=== PATIENT | female | born 1990 | race Caucasian/White ===

== ENCOUNTER 2017-10-06 18:11 | Emergency (ER) | payer MEDICAID ==
[~2017-10-06 18:11] MED LIST: CHLO.12%30 SWISH-SPIT; CLIN150 PO; IBUP800T23 PO; MMW SWISH-SPIT; NAPR220T95 PO; PAXI20TA26 PO
[2017-10-06 18:31] VITALS: BP 110/63; PULSE 88; RESP 20; TEMP 98.3; O2SAT 98
[2017-10-06] MEDS ORDERED: [UNRECOGNIZED DRUG - REMARK] (18:46)
[2017-10-06] MEDS ORDERED: SODIUM CHLOR 0.9% 1000 ML INJ 1,000 ML IV SCH (19:18)
[2017-10-06] MEDS ORDERED: ZOFR4TAB3 SL (19:30)
[2017-10-06] MEDS ORDERED: LOMO2.5T PO (19:30)
[2017-10-06] MEDS ORDERED: KETOROLAC TROMETHAMINE 30 MG/ML (IVP) VIAL IVP ONE (19:30)
[2017-10-06] MEDS ORDERED: SODIUM CHLORIDE 0.9% FLUSH 10 ML FLUSH IV FLUSH PRN (19:30)
[2017-10-06] MEDS ORDERED: ONDANSETRON HCL 4 MG/2 ML VIAL IVP ONE (19:30)
--- NOTE | 2017-10-06 19:31 | PD ---
HPI Chief Complaint: Fever Time Seen by Provider: 18:49 Travel History International Travel<30 days: No Contact w/Intl Traveler<30days: No Traveled to known affect area: No History of Present Illness HPI 27-year-old female complains of headache, fever, nausea vomiting diarrhea. Patient states the symptoms started yesterday. Patient states that the headache is aching headache diffuse over the head. Patient denies any visual change. Patient denies any neck pain. Patient denies earache or sore throat. Patient denies chest pain or shortness of breath. Patient states that she has intermittent abdominal cramping with diarrhea. Patient denies any blood or mucus in the stool. Patient denies any dysuria or frequency. Patient denies any vaginal discharge or bleeding. Patient states that she has history of recurrent headache in the past and on medication for that. Patient does not know the name of the medication for the headache. PFSH Past Medical History Medical History: Denies Significant Hx Diminished Hearing: No Immunizations Current: Yes ?: Not LMP: 10 27 17 : 4 Para: 2 : 1 Past Surgical History Abdominal Surgery: Yes () Section: Yes (2008) Social History Alcohol Use: No Tobacco Use: No Substance Use: No Allergies-Medications (Allergen,Severity, Reaction): Coded Allergies: No Known Allergies (Verified , 01/28/16) Reported Meds & Prescriptions Reported Meds & Active Scripts Active Lomotil (Diphenoxylate-Atropine) 2.5-0.025 Mg Tab 1 Tab PO Q6H PRN Zofran Odt (Ondansetron Odt) 4 Mg Tab 4 Mg SL Q6HR PRN Reported [Rx Headache Med] Review of Systems General / Constitutional: Positive: Fever Eyes: No: Visual changes HENT: Positive: Headaches Cardiovascular: No: Chest Pain or Discomfort Respiratory: No: Shortness of Breath Gastrointestinal: Positive: Nausea, Vomiting, Diarrhea, Abdominal Pain Genitourinary: No: Dysuria Musculoskeletal: No: Pain Skin: No Rash Neurologic: No: Weakness Psychiatric: No: Depression Endocrine: No: Polydipsia Hematologic/Lymphatic: No: Easy Bruising Physical Exam Narrative GENERAL: Well-nourished, well-developed patient. SKIN: Focused skin assessment warm/dry. HEAD: Normocephalic. EYES: No scleral icterus. No injection or drainage. Mucous membrane oral mucosa is mildly dry. NECK: Supple, trachea midline. No JVD or lymphadenopathy. No meningismus CARDIOVASCULAR: Regular rate and rhythm without murmurs, gallops, or rubs. RESPIRATORY: Breath sounds equal bilaterally. No accessory muscle use. GASTROINTESTINAL: Abdomen soft, non-tender, nondistended. MUSCULOSKELETAL: No cyanosis, or edema. BACK: Nontender without obvious deformity. No CVA tenderness. Neurologic exam normal. Data Data Last Documented VS Vital Signs Date Time Temp Pulse Resp B/P (MAP) Pulse Ox O2 Delivery O2 Flow Rate FiO2 10/06/17 18:31 98.3 88 20 110/63 (79) 98 Orders Orders Complete Blood Count With Diff (10/06/17 19:18) Comprehensive Metabolic Panel (10/06/17 19:18) Lipase (10/06/17 19:18) Urinalysis - C+S If Indicated (10/06/17 19:18) Iv Access Insert/Monitor (10/06/17 19:18) Ondansetron Inj (Zofran Inj) (10/06/17 19:30) Sodium Chlor 0.9% 1000 Ml Inj (Ns 1000 M (10/06/17 19:18) Sodium Chloride 0.9% Flush (Ns Flush) (10/06/17 19:30) Ketorolac Inj (Toradol Inj) (10/06/17 19:30) Ed Urine Pregnancytest Poc (10/06/17 19:18) Labs Laboratory Tests Test 10/06/17 19:05 10/06/17 19:25 Urine Color YELLOW Urine Turbidity CLEAR Urine pH 7.0 Urine Specific [place] 1.023 Urine Protein NEG mg/dL Urine Glucose (UA) NEG mg/dL Urine Ketones NEG mg/dL Urine Occult Blood NEG Urine Nitrite NEG Urine Bilirubin NEG Urine Leukocyte Esterase TRACE Urine RBC 0-2 /hpf Urine WBC 6-8 /hpf Urine Squamous Epithelial Cells 6-8 /hpf Urine Bacteria FEW /hpf Microscopic Urinalysis Comment CULT NOT INDICATED White Blood Count 10.2 TH/MM3 Red Blood Count 4.34 MIL/MM3 Hemoglobin 12.7 GM/DL Hematocrit 37.2 % Mean Corpuscular Volume 85.7 FL Mean Corpuscular Hemoglobin 29.3 PG Mean Corpuscular Hemoglobin Concent 34.1 % Red Cell Distribution Width 14.0 % Platelet Count 213 TH/MM3 Mean Platelet Volume 8.1 FL Neutrophils (%) (Auto) 52.2 % Lymphocytes (%) (Auto) 34.9 % Monocytes (%) (Auto) 8.5 % Eosinophils (%) (Auto) 3.5 % Basophils (%) (Auto) 0.9 % Neutrophils # (Auto) 5.3 TH/MM3 Lymphocytes # (Auto) 3.5 TH/MM3 Monocytes # (Auto) 0.9 TH/MM3 Eosinophils # (Auto) 0.4 TH/MM3 Basophils # (Auto) 0.1 TH/MM3 CBC Comment DIFF FINAL Differential Comment Blood Urea Nitrogen 22 MG/DL Creatinine 1.10 MG/DL Random Glucose 87 MG/DL Total Protein 6.7 GM/DL Albumin 3.6 GM/DL Calcium Level 8.1 MG/DL Alkaline Phosphatase 64 U/L Aspartate Amino Transf (AST/SGOT) 13 U/L Alanine Aminotransferase (ALT/SGPT) 19 U/L Total Bilirubin 0.5 MG/DL Sodium Level 137 MEQ/L Potassium Level 3.8 MEQ/L Chloride Level 105 MEQ/L Carbon Dioxide Level 26.9 MEQ/L Anion Gap 5 MEQ/L Estimat Glomerular Filtration Rate 59 ML/MIN Lipase 182 U/L [facility] Medical Decision Making Medical Screen Exam Complete: Yes Emergency Medical Condition: Yes Interpretation(s) 2020 p.m. CBC within normal limit. BUN 22. Creatinine 1.10. UA positive with WBC and bacteria. Differential Diagnosis Differential diagnosis including viral syndrome, gastroenteritis, cephalgia, dehydration, electrolyte imbalance. Narrative Course 27-year-old female with fever, abdominal cramping, nausea vomiting diarrhea. Normal saline solution 1 L IV bolus. Zofran 4 mg IV. Toradol 30 mg IV. Diagnosis Primary Impression: Gastroenteritis Additional Impressions: Viral syndrome Cephalgia Qualified Codes: R51 - Headache UTI (urinary tract infection) Qualified Codes: N30.00 - Acute cystitis without hematuria Patient Instructions: General Instructions Additional Instructions: Clear fluids tonight and advance diet as tolerated. Tylenol for fever. Take medications as needed. Follow-up with personal physician. Return if persistent problem or worse. Med/Other Pt SpecificInfo: Prescription(s) given Scripts Sulfamethoxazole-Trimethoprim (Bactrim DS) 800-160 Mg Tab 1 TAB PO BID for Infection, #6 TAB 0 Refills Prov: Jonas Bray MD 10/06/17 Diphenoxylate-Atropine (Lomotil) 2.5-0.025 Mg Tab 1 TAB PO Q6H Y for DIARRHEA, #10 TAB 0 Refills Prov: Jonas Bray MD 10/06/17 Ondansetron Odt (Zofran Odt) 4 Mg Tab 4 MG SL Q6HR Y for Nausea/Vomiting, #10 TAB 0 Refills Prov: Jonas Bray MD 10/06/17 Disposition: 01 DISCHARGE HOME Condition: Stable Jonas Bray MD Oct 06, 2017 19:31
[2017-10-06 19:38] LABS: AUTOMATED NEUTROPHIL # 5.3 TH/MM3 (1.8-7.7); BASOPHIL # 0.1 TH/MM3 (0-0.2); BASOPHIL % 0.9 % (0.0-2.0); EOSINOPHIL # 0.4 TH/MM3 (0-0.4); EOSINOPHIL % 3.5 % (0.0-4.0); HEMATOCRIT 37.2 % (35.0-46.0); HEMO FLAGS DIFF FINAL; LYMPH % 34.9 % (9.0-44.0); LYMPHOCYTE # 3.5 TH/MM3 (1.0-4.8); MEAN CELL VOLUME 85.7 FL (80.0-100.0); MEAN CORPUSCULAR HEMOGLOBIN 29.3 PG (27.0-34.0); MEAN CORPUSCULAR HGB CONC 34.1 % (32.0-36.0); MONO % 8.5 % (0.0-8.0); NEUT % 52.2 % (16.0-70.0); PLATELET COUNT 213 TH/MM3 (150-450); RED BLOOD COUNT 4.34 MIL/MM3 (4.00-5.30); WHITE BLOOD COUNT 10.2 TH/MM3 (4.0-11.0)
[2017-10-06 19:40] LABS: BLOOD, URINE NEG (NEG); GLUCOSE,URINE NEG (NEG); KETONE, URINE NEG (NEG); NITRITE,URINE NEG (NEG)
[2017-10-06 19:45] LABS: RBC, URINE 0-2 /hpf (0-3); URINE COLOR YELLOW (YELLW/STRAW)
[2017-10-06 19:46] LABS: BACTERIA, URINE FEW /hpf; COMMENT (UR) CULT NOT INDICATED; CULTURE IF INDICATED CULT NOT INDICATED
[2017-10-06 19:48] LABS: CHLORIDE 105 MEQ/L (98-107); POTASSIUM 3.8 MEQ/L (3.5-5.1); SODIUM (NA) 137 MEQ/L (136-145)
[2017-10-06 19:52] LABS: ANION GAP 5 MEQ/L (5-15); BICARBONATE 26.9 MEQ/L (21.0-32.0); BLOOD UREA NITROGEN 22 MG/DL (7-18)
[2017-10-06 19:55] LABS: ALT (GPT) 19 U/L (10-53); AST (GOT) 13 U/L (15-37); GLOMERULAR FILTRATION RATE 59 ML/MIN (>89)
[2017-10-06 19:56] LABS: TOTAL BILIRUBIN ADULT 0.5 MG/DL (0.2-1.0)
[2017-10-06 19:58] LABS: ALKALINE PHOSPHATASE 64 U/L (45-117)
[2017-10-06] MEDS ORDERED: BACT800T5 PO (20:23)
[2017-10-06 20:51] VITALS: BP 105/57
== END 2017-10-06 20:52 | disposition home or self-care (01) ==
LOC: PHED 18:11
DX: K52.9 Noninfective gastroenteritis and colitis, unspecified (principal); B34.9 Viral infection, unspecified; R51 Headache; N30.00 Acute cystitis without hematuria
CPT/HCPCS: 80053; 81001; 83690; 84703; 85025; 96361; 96374; 96375; 99284; J1885; J2405; J7030

== ENCOUNTER 2017-10-12 07:59 | Emergency (ER) | payer OTHER, MEDICAID ==
[~2017-10-12] VITALS: Ht 149.9 cm; Wt 52.0 kg
[~2017-10-12 07:59] MED LIST changes: +BACT800T5 PO; -CHLO.12%30 SWISH-SPIT; -CLIN150 PO; -IBUP800T23 PO; +LOMO2.5T PO; -MMW SWISH-SPIT; -NAPR220T95 PO; -PAXI20TA26 PO; +ZOFR4TAB3 SL; +[UNRECOGNIZED DRUG - REMARK]
[2017-10-12 08:01] VITALS: BP 138/87; PULSE 92; RESP 18; TEMP 98.3; O2SAT 99
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
[2017-10-12] MEDS ORDERED: ORPHENADRINE INJ 60 MG/2 ML AMP IM ONE (09:00)
[2017-10-12] MEDS ORDERED: KETOROLAC TROMETHAMINE 60 MG/2 ML (IM) VIAL IM ONE (09:00)
[2017-10-12] MEDS ORDERED: ROBA500T PO (09:17)
[2017-10-12] MEDS ORDERED: IBUP1TAB7 PO (09:17)
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
== END 2017-10-12 10:29 | disposition home or self-care (01) ==
LOC: NEPD 07:59
DX: S13.4XXA Sprain of ligaments of cervical spine, initial encounter (principal); S00.33XA Contusion of nose, initial encounter; M54.5 Low back pain; R51 Headache; V43.52XA Car driver injured in collision with other type car in traffic accident, initial encounter
CPT/HCPCS: 70450; 70486; 72020; 72100; 72125; 96372; 99285; J1885; J2360

== ENCOUNTER 2018-01-11 11:31 | Emergency (ER) | payer MEDICAID, OTHER ==
[~2018-01-11] VITALS: Ht 149.9 cm; Wt 52.9 kg
[~2018-01-11 11:31] MED LIST changes: -BACT800T5 PO; +IBUP1TAB7 PO; -LOMO2.5T PO; +ROBA500T PO; -[UNRECOGNIZED DRUG - REMARK]
[2018-01-11 11:36] VITALS: BP 108/71; PULSE 68; RESP 16; TEMP 98.9; O2SAT 99
[2018-01-11 12:00] VITALS: BP 106/69; PULSE 80; RESP 16; TEMP 98.7; O2SAT 99
[2018-01-11] MEDS ORDERED: SODIUM CHLOR 0.9% 1000 ML INJ 1,000 ML IV ONE (12:09)
[2018-01-11] MEDS ORDERED: diphenhydrAMINE HCL 50 MG/ML VIAL IVP ONE (12:15)
[2018-01-11] MEDS ORDERED: METOCLOPRAMIDE HCL 10 MG/2 ML VIAL IVP ONE (12:15)
[2018-01-11] MEDS ORDERED: SODIUM CHLORIDE 0.9% FLUSH 10 ML FLUSH IV FLUSH PRN (12:15)
[2018-01-11 12:17] VITALS: RESP 16; O2SAT 99
[2018-01-11 12:28] LABS: BILIRUBIN, URINE NEG (NEG); BLOOD, URINE NEG (NEG); GLUCOSE,URINE NEG (NEG); KETONE, URINE NEG (NEG); NITRITE,URINE NEG (NEG); URINE LEUKOCYTE ESTERASE NEG (NEG)
[2018-01-11 12:35] LABS: URINE COLOR YELLOW (YELLW/STRAW)
[2018-01-11] MEDS ORDERED: TRAM50TA PO (12:35)
[2018-01-11 12:36] LABS: AMORPHOUS SEDIMENT, URINE FEW
--- NOTE | 2018-01-11 13:07 | PD ---
HPI Chief Complaint: GI Complaint Time Seen by Provider: 12:04 Travel History International Travel<30 days: No Contact w/Intl Traveler<30days: No Traveled to known affect area: No History of Present Illness HPI 27-year-old female complains of nausea vomiting this morning while working at [employer] making [employer]. No fever. No vaginal bleeding or discharge. No urinary complaint. Patient was sent here by her employer for evaluation. Duration of symptoms has been several hours. She reports sick contacts. Last menstruation ended yesterday. PFSH Past Medical History Diminished Hearing: No Musculoskeletal: Yes (chronic back pain) Immunizations Current: Yes Tetanus Vaccination: < 5 Years Influenza Vaccination: No ?: Not LMP: 12/30/17 : 4 Para: 2 : 1 Past Surgical History Abdominal Surgery: Yes () Section: Yes (2008) Social History Alcohol Use: No Tobacco Use: No (2-3 CIGARETTES PER DAY) Substance Use: No Allergies-Medications (Allergen,Severity, Reaction): Coded Allergies: No Known Allergies (Verified Adverse Reaction, Unknown, 01/11/18) Reported Meds & Prescriptions Reported Meds & Active Scripts Active Reported Tramadol (Tramadol HCl) 50 Mg Tab 50 Mg PO BID PRN Review of Systems Except as stated in HPI: all other systems reviewed are Neg General / Constitutional: No: Fever Cardiovascular: No: Chest Pain or Discomfort Physical Exam Narrative GENERAL: Well-nourished well-developed 27-year-old female resting comfortably in bed Vital Signs Date Time Temp Pulse Resp B/P (MAP) Pulse Ox O2 Delivery O2 Flow Rate FiO2 01/11/18 12:17 16 99 Room Air 01/11/18 12:12 16 01/11/18 12:00 98.7 80 16 106/69 (81) 99 SKIN: Warm and dry. HEAD: Atraumatic. Normocephalic. EYES: Pupils equal and round. No scleral icterus. No injection or drainage. ENT: No nasal bleeding or discharge. Mucous membranes pink and moist. NECK: Trachea midline. No JVD. CARDIOVASCULAR: Regular rate and rhythm. RESPIRATORY: No accessory muscle use. Clear to auscultation. Breath sounds equal bilaterally. GASTROINTESTINAL: Abdomen soft, non-tender, nondistended. Hepatic and splenic margins not palpable. MUSCULOSKELETAL: Extremities without clubbing, cyanosis, or edema. No obvious deformities. NEUROLOGICAL: Awake and alert. No obvious cranial nerve deficits. Motor grossly within normal limits. Five out of 5 muscle strength in the arms and legs. Normal speech. PSYCHIATRIC: Appropriate mood and affect; insight and judgment normal. Data Data Last Documented VS Vital Signs Date Time Temp Pulse Resp B/P (MAP) Pulse Ox O2 Delivery O2 Flow Rate FiO2 01/11/18 12:17 16 99 Room Air 01/11/18 12:00 98.7 80 106/69 (81) Orders Orders Urinalysis - C+S If Indicated (01/11/18 12:09) Iv Access Insert/Monitor (01/11/18 12:09) Ecg Monitoring (01/11/18 12:09) Oximetry (01/11/18 12:09) Sodium Chloride 0.9% Flush (Ns Flush) (01/11/18 12:15) Ed Urine Pregnancytest Poc (01/11/18 12:09) Diphenhydramine Inj (Benadryl Inj) (01/11/18 12:15) Metoclopramide Inj (Reglan Inj) (01/11/18 12:15) Sodium Chlor 0.9% 1000 Ml Inj (Ns 1000 M (01/11/18 12:09) Influenzae A/B Antigen (01/11/18 12:09) Ed Discharge Order (01/11/18 13:11) Labs Laboratory Tests Test 01/11/18 12:20 Urine Collection Type CLEAN CATCH Urine Color YELLOW Urine Turbidity CLEAR Urine pH 6.0 Urine Specific [place] 1.007 Urine Protein NEG mg/dL Urine Glucose (UA) NEG mg/dL Urine Ketones NEG mg/dL Urine Occult Blood NEG Urine Nitrite NEG Urine Bilirubin NEG Urine Leukocyte Esterase NEG Urine Squamous Epithelial Cells 6-8 /hpf Urine Amorphous Sediment FEW Microscopic Urinalysis Comment CULT NOT INDICATED Urine Collection Time 1220 MDM Medical Decision Making Medical Screen Exam Complete: Yes Emergency Medical Condition: Yes Medical Record Reviewed: Yes Differential Diagnosis UTI intrauterine influenza gastroenteritis Narrative Course Urinalysis shows no UTI Influenza shows no flu Patient has received IV fluids and antiemetics and reports improvement and is ready for discharge. Diagnosis Primary Impression: Nausea & vomiting Additional Impression: Diarrhea Med/Other Pt SpecificInfo: Prescription(s) given Scripts Ondansetron Odt (Zofran Odt) 4 Mg Tab 4 MG SL Q8HR Y for Nausea/Vomiting, #10 TAB 0 Refills Prov: Ty Morris MD 01/11/18 Disposition: 01 DISCHARGE HOME Condition: Stable Ty Morris MD Jan 11, 2018 13:07
[2018-01-11] MEDS ORDERED: ZOFR4TAB3 SL (13:24)
== END 2018-01-11 13:35 | disposition home or self-care (01) ==
LOC: PHED 11:31
DX: R11.2 Nausea with vomiting, unspecified (principal); R19.7 Diarrhea, unspecified; Z72.0 Tobacco use
CPT/HCPCS: 81001; 84703; 87804; 96361; 96374; 96375; 99284; J1200; J2765; J7030

== ENCOUNTER 2018-02-04 11:11 | Emergency (ER) | payer MEDICAID ==
[~2018-02-04] VITALS: Ht 149.9 cm; Wt 51.0 kg
[~2018-02-04 11:11] MED LIST changes: -IBUP1TAB7 PO; -ROBA500T PO; +TRAM50TA PO
[2018-02-04 11:18] VITALS: BP 117/62; PULSE 90; RESP 16; TEMP 98.4; O2SAT 98
[2018-02-04] MEDS ORDERED: ACETAMINOPHEN/HYDROcodone 325 MG/5 MG TAB PO ONE (11:30)
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
[2018-02-04] MEDS ORDERED: DICL75TA PO (11:51)
[2018-02-04] MEDS ORDERED: TRAM50TA PO (11:51)
== END 2018-02-04 12:12 | disposition home or self-care (01) ==
LOC: PHEFT 11:11
DX: S80.12XA Contusion of left lower leg, initial encounter (principal); V86.56XA Driver of dirt bike or motor/cross bike injured in nontraffic accident, initial encounter
CPT/HCPCS: 73590; 99283; E0113; L1830